=== PATIENT | female | born 1970 | race African-American/Black ===

== ENCOUNTER 2018-03-25 23:07 | Observation (INO) | payer SELFPAY ==
[2018-03-25] MEDS ORDERED: ASPIRIN 81 MG TABLET, CHEWABLE PO ONE (23:23)
[2018-03-25 23:53] LABS: ABSOLUTE BASOPHILS # (AUTO) 0.1 10^3/uL (0.0-0.2); ABSOLUTE EOSINOPHILS # (AUTO) 0.2 10^3/uL (0.0-0.6); ABSOLUTE LYMPHOCYTES (AUTO) 3.3 10^3/uL (0.5-4.7); ABSOLUTE MONOCYTES (AUTO) 0.6 10^3/uL (0.1-1.4); BASOPHILS % (AUTO) 1.1 % (0-2); EOSINOPHILS % (AUTO) 2.3 % (0-6); HEMATOCRIT 40.7 % (36.0-47.0); HEMOGLOBIN 13.8 g/dL (12.0-15.5); LYMPHOCYTES % (AUTO) 45.8 % (13-45); MEAN CORPUSCULAR HEMOGLOBIN 31.1 pg (27.0-33.4); MEAN CORPUSCULAR HGB CONC 33.7 g/dL (32.0-36.0); MEAN CORPUSCULAR VOLUME 92 fl (80-97); MONOCYTES % (AUTO) 8.8 % (3-13); PLATELET COUNT 355 10^3/uL (150-450); RED BLOOD COUNT 4.42 10^6/uL (3.72-5.28); RED CELL DISTRIBUTION WIDTH 13.2 % (11.5-14.0); TOTAL CELLS COUNTED % (AUTO) 100 %; WHITE BLOOD COUNT 7.2 10^3/uL (4.0-10.5)
[2018-03-26 00:04] LABS: ALANINE AMINOTRANSFERASE 32 U/L (9-52); ALBUMIN 4.3 g/dL (3.5-5.0); ALKALINE PHOSPHATASE 102 U/L (38-126); ANION GAP 12 (5-19); ASPARTATE AMINO TRANSFERASE 25 U/L (14-36); BILIRUBIN,DIRECT 0.3 mg/dL (0.0-0.4); BILIRUBIN,TOTAL 0.3 mg/dL (0.2-1.3); BLOOD UREA NITROGEN 17 mg/dL (7-20); CALCIUM 10.2 mg/dL (8.4-10.2); CARBON DIOXIDE 28 mmol/L (22-30); CHLORIDE 104 mmol/L (98-107); CREATINE KINASE 196 U/L (30-135); GLUCOSE 121 mg/dL (75-110); POTASSIUM 4.6 mmol/L (3.6-5.0); SODIUM 143.6 mmol/L (137-145); TOTAL PROTEIN 7.6 g/dL (6.3-8.2)
[2018-03-26 00:13] LABS: CREATINE KINASE MB 1.36 ng/mL (<4.55)
[2018-03-26 00:19] LABS: TROPONIN I < 0.012 ng/mL
[2018-03-26] MEDS ORDERED: DIAZEPAM INJ 10 MG/2 ML DISP.SYRIN IV ONE (00:30)
[2018-03-26] MEDS ORDERED: METHYLPREDNISOLONE INJ 125 MG/2 ML SDV IV ONE (00:30)
--- NOTE | 2018-03-26 00:36 | ER Document Report ---
ED General - General Chief Complaint: Breathing Difficulty Stated Complaint: CHEST PAIN Time Seen by Provider: 03/26/18 00:15 Mode of Arrival: Ambulatory Information source: Patient Notes: 47-year-old female is mastitis presents with complaints of generalized body aches. Patient notes symptoms have been ongoing now for approximately a week. Patient notes that she chronically has generalized body aches however she does have recent travel here in the car from [place] and felt that her body was getting worse. She denies any history of DVTs or PEs, denies any history of coronary artery disease, patient notes that she chronically has chest pain shortness of breath with her polymyositis Patient used to be on methotrexate and steroids but no longer is on any medications TRAVEL OUTSIDE OF THE [place] IN LAST 30 DAYS: No - HPI Onset: Last week Onset/Duration: Persistent Quality of pain: Achy Severity: Mild Pain Level: 1 Associated symptoms: Body/muscle aches, Chest pain, Shortness of breath Exacerbated by: Denies Relieved by: Denies Similar symptoms previously: No Recently seen / treated by doctor: No - Related Data Allergies/Adverse Reactions: No Known Allergies Allergy (Unverified 03/26/18 02:46) Past Medical History - Social History Smoking Status: Never Smoker Cigarette use (# per day): No Chew tobacco use (# tins/day): No Smoking Education Provided: No Family History: Reviewed & Not Pertinent Review of Systems - Review of Systems Notes: REVIEW OF SYSTEMS: CONSTITUTIONAL : Denies fever, chills, or sweats. Denies recent illness. EENT: Denies eye, ear, throat, or mouth pain or symptoms. Denies nasal or sinus congestion or discharge. Denies throat, tongue, or mouth swelling or difficulty swallowing. CARDIOVASCULAR: Admits chest pain shortness of breath RESPIRATORY: Denies cough, cold, or chest congestion. Admits shortness of breath GASTROINTESTINAL: Denies abdominal pain or distention. Denies nausea, vomiting , or diarrhea. Denies blood in vomitus, stools, or per rectum. Denies black, tarry stools. Denies constipation. GENITOURINARY: Denies difficulty urinating, painful urination, burning, frequency, blood in urine, or discharge. FEMALE GENITOURINARY: Denies vaginal bleeding, heavy or abnormal periods, irregular periods. Denies vaginal discharge or odor. MUSCULOSKELETAL: Admits to generalized body aches SKIN: Denies rash, lesions or sores. HEMATOLOGIC : Denies easy bruising or bleeding. LYMPHATIC: Denies swollen, enlarged glands. NEUROLOGICAL: Denies confusion or altered mental status. Denies passing out or loss of consciousness. Denies dizziness or lightheadedness. Denies headache. Denies weakness or paralysis or loss of use of either side. Denies problems with gait or speech. Denies sensory loss, numbness, or tingling. Denies seizures. PSYCHIATRIC: Denies anxiety or stress. Denies depression, suicidal ideation, or homicidal ideation. ALL OTHER SYSTEMS REVIEWED AND NEGATIVE. PHYSICAL EXAMINATION: GENERAL: Well-appearing, well-nourished and in no acute distress. HEAD: Atraumatic, normocephalic. EYES: Pupils equal round and reactive to light, extraocular movements intact, conjunctiva are normal. ENT: Nares patent, oropharynx clear without exudates. Moist mucous membranes. NECK: Normal range of motion, supple without lymphadenopathy LUNGS: Breath sounds clear to auscultation bilaterally and equal. No wheezes rales or rhonchi. HEART: Regular rate and rhythm without murmurs ABDOMEN: Soft, nontender, nondistended abdomen. No guarding, no rebound. No masses appreciated. Female : deferred Musculoskeletal: Normal range of motion, no pitting or edema. No cyanosis. Tenderness upon palpation of all muscles NEUROLOGICAL: Cranial nerves grossly intact. Normal speech, normal gait. Normal sensory, motor exams PSYCH: Normal mood, normal affect. SKIN: Warm, Dry, normal turgor, no rashes or lesions noted. Dictation was performed using [employer] voice recognition software Physical Exam - Vital signs Vitals: Temp Pulse Resp BP Pulse Ox 98.7 F 84 20 148/94 H 99 03/25/18 23:34 03/25/18 23:34 03/25/18 23:34 03/25/18 23:34 03/25/18 23:34 Course - Re-evaluation Re-evalutation: 03/26/18 00:36 Patient's presentation is probably secondary to her polymyositis, this is with the patient states as well, however given recent travel CT of the chest is pending, her vital signs are completely normal, she overall looks well, I will treat her initially with steroids and muscle relaxant at her request and do a cardiac workup as well 03/26/18 04:29 cta inconclusive, will admit ot chest pain - Vital Signs Vital signs: Temp Pulse Resp BP Pulse Ox 98.7 F 84 15 182/123 H 96 03/25/18 23:34 03/25/18 23:34 03/26/18 04:00 03/26/18 00:31 03/26/18 04:00 - Laboratory Result Diagrams: 03/25/18 23:35 03/25/18 23:35 Laboratory results interpreted by me: 03/25/18 03/25/18 23:35 23:35 Lymphocytes % 45.8 H Glucose 121 H Creatine Kinase 196 H - Diagnostic Test Radiology reviewed: Image reviewed, Reports reviewed - EKG Interpretation by Me EKG shows normal: Sinus rhythm, [place], QRS Complexes Discharge - Discharge Clinical Impression: Chest pain Qualifiers: Chest pain type: unspecified Qualified Code(s): R07.9 - Chest pain, unspecified Condition: Stable Disposition: ADMITTED OBSERVATION Admitting Provider: Hospitalist Unit Admitted: Telemetry
--- NOTE | 2018-03-26 01:33 | RADIOLOGY REPORT (SQ) ---
EXAM DESCRIPTION: CR chest one view CLINICAL HISTORY: 47 years Female, CHES PAIN COMPARISON: None. NUMBER OF VIEWS/TECHNIQUE: 1/AP FINDINGS: Adequate lung volume, clear parenchyma, normal cardiac silhouette, and intact bony thorax. IMPRESSION: No acute cardiopulmonary findings.
--- NOTE | 2018-03-26 02:47 | RADIOLOGY REPORT (SQ) ---
EXAM DESCRIPTION: CTA chest with contrast CLINICAL HISTORY: 47 years Female, recent travel, sob COMPARISON: None. TECHNIQUE: IV contrast. 3D reconstruction. This exam was performed according to our departmental dose-optimization program, which includes automated exposure control, adjustment of the mA and/or kV according to patient size and/or use of iterative reconstruction technique. [facility]: Dose Right [facility]: CareDose [facility]: Dose Right [facility]: Teradose 4D [facility]: Kngroo LIMITATIONS: None. Findings: There is inadequate enhancement of the pulmonary arterial system measuring 141 HU significantly decreasing sensitivity of this exam. Consider repeat, alternative, or surveillance investigation as clinically warranted. CTA appearance of the thoracic aorta is normal. Inferior neck, axillae, mediastinum, lungs, airway, lymphatics, heart, upper abdomen, and musculoskeleton appear unremarkable. Moderate dextroconvexity. Impression: Incomplete exam for pulmonary embolus.There is inadequate enhancement of the pulmonary arterial system. Consider repeat, alternative, or surveillance investigation as clinically warranted.
[2018-03-26] MEDS ORDERED: NITROGLYCERIN 0.4 MG/TAB 25 TAB/BOTTLE SL PRN (04:27)
[2018-03-26] MEDS ORDERED: MAG HYDROX/AL HYDROX/SIMETH SUSP 30 ML UDCUP PO PRN (04:27)
[2018-03-26] MEDS ORDERED: LACTULOSE SYRUP 20 GM/30 ML UDCUP PO ONE (04:31)
[2018-03-26] MEDS ORDERED: ATORVASTATIN CALCIUM 80 MG TABLET PO ONE (05:00)
[2018-03-26] MEDS ORDERED: ENALAPRIL MALEATE 5 MG TABLET PO ONE (05:00)
[2018-03-26 05:11] LABS: ABSOLUTE LYMPHOCYTES (AUTO) 1.3 10^3/uL (0.5-4.7); ABSOLUTE MONOCYTES (AUTO) 0.1 10^3/uL (0.1-1.4); ABSOLUTE NEUT (AUTO) 4.1 10^3/uL (1.7-8.2); BASOPHILS % (AUTO) 0.8 % (0-2); EOSINOPHILS % (AUTO) 0.4 % (0-6); HEMATOCRIT 41.6 % (36.0-47.0); HEMOGLOBIN 13.9 g/dL (12.0-15.5); LYMPHOCYTES % (AUTO) 22.9 % (13-45); MEAN CORPUSCULAR HEMOGLOBIN 30.4 pg (27.0-33.4); MEAN CORPUSCULAR HGB CONC 33.3 g/dL (32.0-36.0); MEAN CORPUSCULAR VOLUME 91 fl (80-97); MONOCYTES % (AUTO) 2.7 % (3-13); PLATELET COUNT 331 10^3/uL (150-450); RED BLOOD COUNT 4.57 10^6/uL (3.72-5.28); RED CELL DISTRIBUTION WIDTH 13.3 % (11.5-14.0); SEGMENTED NEUTROPHILS % (AUTO) 73.2 % (42-78); TOTAL CELLS COUNTED % (AUTO) 100 %; WHITE BLOOD COUNT 5.6 10^3/uL (4.0-10.5)
[2018-03-26 05:21] LABS: CHOLESTEROL 227.34 mg/dL (0-200); TRIGLYCERIDES 139 mg/dL (<150)
[2018-03-26 05:32] LABS: DIRECT LDL 142 mg/dL (<100)
[2018-03-26 05:49] LABS: ERYTHROCYTE SEDIMENTATION RATE 22 mm/hr (0-20)
--- NOTE | 2018-03-26 07:33 | PDOC H&P ---
History of Present Illness Admission Date/PCP: 03/26/18 04:31 Patient complains of: Chest heaviness History of Present Illness: DEREJE BARGER is a 47 year old female with history of polymyositis, Morbid obesity and medication noncompliance. Patient presents after relocation from [facility] and complaint of chest heaviness with radiation to arms bilaterally worsened with activity alleviated by rest. Patient admits medication noncompliance for 1 year secondary to financial barriers. In the emergency room she is found to have hypertensive urgency of 180/120. She receives aspirin and Valium greatly improving blood pressure and pain. Initial workup was unremarkable she denies previous cardiac workup. She is referred to the hospitalist for admission. Past Medical History Cardiac Medical History: Reports: Hypertension Musculoskeltal Medical History: Reports: Other - Polymyositis Past Surgical History Past Surgical History: Reports: None Social History Information Source: Patient Smoking Status: Never Smoker Frequency of Alcohol Use: None Drugs: None - Advance Directive Resuscitation Status: Full Code Family History Family History: CAD, DM Parental Family History Reviewed: Yes Children Family History Reviewed: Yes Sibling(s) Family History Reviewed.: Yes Medication/Allergy Home Medications: No Home Medications 03/26/18 Allergies/Adverse Reactions: No Known Allergies Allergy (Unverified 03/26/18 02:46) Review of Systems Constitutional: ABSENT: chills, fever(s), headache(s), weight gain, weight loss Eyes: ABSENT: visual disturbances Ears: ABSENT: hearing changes Cardiovascular: ABSENT: chest pain, dyspnea on exertion, edema, orthropnea, palpitations Respiratory: ABSENT: cough, hemoptysis Gastrointestinal: ABSENT: abdominal pain, constipation, diarrhea, hematemesis, hematochezia, nausea, vomiting Genitourinary: ABSENT: dysuria, hematuria Musculoskeletal: ABSENT: joint swelling Integumentary: ABSENT: rash, wounds Neurological: ABSENT: abnormal gait, abnormal speech, confusion, dizziness, focal weakness, syncope Psychiatric: ABSENT: anxiety, depression, homidical ideation, suicidal ideation Endocrine: ABSENT: cold intolerance, heat intolerance, polydipsia, polyuria Hematologic/Lymphatic: ABSENT: easy bleeding, easy bruising Physical Exam Vital Signs: Temp Pulse Resp BP Pulse Ox 98.7 F 84 16 182/123 H 100 03/25/18 23:34 03/25/18 23:34 03/26/18 07:00 03/26/18 00:31 03/26/18 07:00 General appearance: PRESENT: no acute distress, well-developed, well-nourished Head exam: PRESENT: atraumatic, normocephalic Eye exam: PRESENT: conjunctiva pink, EOMI, PERRLA. ABSENT: scleral icterus Ear exam: PRESENT: normal external ear exam Mouth exam: PRESENT: moist, tongue midline Neck exam: ABSENT: carotid bruit, JVD, lymphadenopathy, thyromegaly Respiratory exam: PRESENT: clear to auscultation shara. ABSENT: rales, rhonchi, wheezes Cardiovascular exam: PRESENT: RRR. ABSENT: diastolic murmur, rubs, systolic murmur Pulses: PRESENT: normal dorsalis pedis pul Vascular exam: PRESENT: normal capillary refill GI/Abdominal exam: PRESENT: normal bowel sounds, soft. ABSENT: distended, guarding, mass, organolmegaly, rebound, tenderness Rectal exam: PRESENT: deferred Extremities exam: PRESENT: full ROM. ABSENT: calf tenderness, clubbing, pedal edema Neurological exam: PRESENT: alert, awake, oriented to person, oriented to place , oriented to time, oriented to situation, CN II-XII grossly intact. ABSENT: motor sensory deficit Psychiatric exam: PRESENT: appropriate affect, normal mood. ABSENT: homicidal ideation, suicidal ideation Skin exam: PRESENT: dry, intact, warm. ABSENT: cyanosis, rash Results Laboratory Results: 03/26/18 05:00 03/26/18 03/26/18 05:00 05:00 WBC 5.6 RBC 4.57 Hgb 13.9 Hct 41.6 MCV 91 MCH 30.4 MCHC 33.3 RDW 13.3 Plt Count 331 Seg Neutrophils % 73.2 Lymphocytes % 22.9 Monocytes % 2.7 L Eosinophils % 0.4 Basophils % 0.8 Absolute Neutrophils 4.1 Absolute Lymphocytes 1.3 Absolute Monocytes 0.1 Absolute Eosinophils 0.0 Absolute Basophils 0.0 Triglycerides 139 Cholesterol 227.34 H LDL Cholesterol Direct 142 H VLDL Cholesterol 28.0 HDL Cholesterol 47 Impressions: Chest X-Ray 03/25/18 23:23 IMPRESSION: No acute cardiopulmonary findings. Assessment & Plan - Diagnosis (1) Chest pain Qualifiers: Chest pain type: unspecified Qualified Code(s): R07.9 - Chest pain, unspecified Is this a current diagnosis for this admission?: Yes Plan: Chest pain there are multiple risk factors for coronary artery disease and subsequently will observe and evaluation of acute coronary syndrome versus coronary artery disease with anginal equivalents. Cardiac monitoring blood pressure Q6 hours ,TSH, lipid profile, serial cardiac enzymes and cardiac stress test (2) Polymyositis Is this a current diagnosis for this admission?: Yes Plan: Obtain ESR consider steroid (3) Hypertensive urgency Is this a current diagnosis for this admission?: Yes Plan: IV TESS inhibitor and hydralazine as needed, possible anxiety component, consider trazodone - Time Time Spent: 50 to 70 Minutes - Inpatient Certification Medical Necessity: Need Close Monitoring Due to Risk of Patient Decompensation
--- NOTE | 2018-03-26 07:48 | EKG REPORT ---
SEVERITY:- NORMAL ECG - SINUS RHYTHM : Confirmed by: Rohit Gonzales MD 26-Mar-2018 07:48:28
[2018-03-26] MEDS ORDERED: METOPROLOL TARTRATE PF/INJ 5 MG/5 ML SDV IV ONE (07:59)
[2018-03-26] MEDS: ENALAPRIL MALEATE 5 MG TABLET PO SCH ×2 (09:31→21:44)
[2018-03-26] MEDS: METOPROLOL TARTRATE 25 MG TABLET PO SCH ×2 (09:31→21:44)
[2018-03-26] MEDS: DOCUSATE SODIUM 100 MG CAPSULE PO SCH ×2 (09:31→17:34)
[2018-03-26 10:50] LABS: CREATINE KINASE MB 1.17 ng/mL (<4.55)
[2018-03-26 10:55] LABS: TROPONIN I < 0.012 ng/mL
[2018-03-26] MEDS ORDERED: REGADENOSON INJ 0.4 MG/5 ML DISP.SYRIN IV ONE (11:57)
[2018-03-26] MEDS ORDERED: AMINOPHYLLINE INJ/PF 250 MG/10 ML SDV IV ONE (11:57)
--- NOTE | 2018-03-26 13:28 | DRAGON STRESS TEST REPORT ---
INTRAVENOUS LEXISCAN CARDIOLITE STRESS TEST USING SINGLE PHOTON EMMISION COMPUTERIZED TOMOGRAPHIC. DATE OF PROCEDURE: March 26, 2018, INDICATION : Chest pain CARDIAC RISK FACTORS: Dyslipidemia RESTING EKG: Sinus rhythm without any baseline ST-T wave changes STRESS EKG: No significant ST segment changes noted with LexiScan bolus REASON FOR TERMINATION: Protocol. PROCEDURE REPORT: Baseline heart rate 85 beats per minute with blood pressure of 139/92. Patient had no significant complaints. Patient was bolused with Lexiscan 0.4 mg intravenously followed by saline bolus. Heart rate at 2 minutes post bolus 103 with a blood pressure of 151/102. 3 minutes post bolus heart rate 97 with blood pressure of 140/98. No significant EKG changes were noted. Patient had no significant complaints during the procedure or postprocedure. Patient injected with Aminophyllin 75 mg at 3 minutes or later after Lexiscan bolus. CONCLUSIONS: Normal EKG and hemodynamic response to IV LexiScan. NUCLEAR DATA: At rest the patient was given 13.98 millicuries of technetium 99 sestamibi injected intravenously. As per protocol rest gated SPECT images were obtained. On day of stress test, the patient was given intravenous LexiScan at a dose of 0.4 mg in 5 mL intravenously, followed by flush with normal saline. Subsequently the stress dose of 47.2 millicuries of technetium 99 sestamibi was injected intravenously. As per protocol stress gated images were obtained. NUCLEAR INTERPRETATION: Both raw and processed data were used for interpretation. Visual, qualitative, computer-generated quantitative data was used. There was good myocardial uptake of technetium compound. Motion artifact and soft tissue attenuations were noted. Increased visceral uptake was noted. Increased diaphragmatic attenuation artifact was noted. It caused some difficulty with interpreting perfusion of the inferior wall. However no definitive areas of transient perfusion defect noted, No definitive areas of fixed perfusion defect or scars noted. EKG gated imaging showed LV EF at 67 %, rest and stress gated EF similar visually. T. I D. ratio was 0.78. Lung heart ratio noted to be within normal limits 0.23. No significant extracardiac and abnormal radiotracer activities were noted. RV free wall uptake was noted to be WNL. IMPRESSION: Also refer to comments under nuclear interpretation. Also test results needs to be interpreted in the context of pretest probability. 1. No definitive areas of transient perfusion defect noted. 2. There is no definitive scintigraphic evidence of myocardial infarction/scar. 3. EKG gated imaging shows left ventricular ejection fraction of approx. 67 %. 4. Clinical correlation requested as occasionally single vessel disease or balanced ischemia could be missed. In approximately 10% of the cases Lexiscan may not cause adequate vasodilatory stress. RECOMMENDATIONS: Aggressive risk factor modification and medical management. Further evaluation may be needed if continued symptoms or other high risk indicators are noted on clinical evaluation. Close cardiology follow-up is also recommended. Clinical correlation with echocardiogram derived ejection fraction. Inability to exercise by itself can lead to increased cardiovascular event risks. Consider cardiology consultation and or follow-up if clinically indicated. 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 RAO
[2018-03-26] MEDS: CYCLOBENZAPRINE HCL 10 MG TABLET PO PRN (16:14)
[2018-03-26 16:20] LABS: CREATINE KINASE MB 1.06 ng/mL (<4.55)
[2018-03-26 16:25] LABS: TROPONIN I < 0.012 ng/mL
[2018-03-26] MEDS: ACETAMINOPHEN 325 MG TABLET PO PRN ×2 (17:35→21:44)
[2018-03-26] MEDS ORDERED: ATORVASTATIN CALCIUM 80 MG TABLET PO SCH (22:00)
[2018-03-26 22:20] LABS: CREATINE KINASE MB 1.21 ng/mL (<4.55); TROPONIN I 0.028 ng/mL
[2018-03-27] MEDS: CYCLOBENZAPRINE HCL 10 MG TABLET PO PRN (00:03)
[2018-03-27 05:48] LABS: CHOLESTEROL 203.52 mg/dL (0-200); CREATINE KINASE 97 U/L (30-135); TRIGLYCERIDES 95 mg/dL (<150)
[2018-03-27 05:57] LABS: DIRECT LDL 133 mg/dL (<100)
[2018-03-27 06:55] LABS: ABSOLUTE BASOPHILS # (AUTO) 0.1 10^3/uL (0.0-0.2); ABSOLUTE EOSINOPHILS # (AUTO) 0.1 10^3/uL (0.0-0.6); ABSOLUTE LYMPHOCYTES (AUTO) 3.7 10^3/uL (0.5-4.7); ABSOLUTE MONOCYTES (AUTO) 1.2 10^3/uL (0.1-1.4); ABSOLUTE NEUT (AUTO) 9.1 10^3/uL (1.7-8.2); BASOPHILS % (AUTO) 0.4 % (0-2); EOSINOPHILS % (AUTO) 0.4 % (0-6); HEMATOCRIT 38.9 % (36.0-47.0); LYMPHOCYTES % (AUTO) 26.2 % (13-45); MEAN CORPUSCULAR HEMOGLOBIN 30.5 pg (27.0-33.4); MEAN CORPUSCULAR HGB CONC 33.4 g/dL (32.0-36.0); MEAN CORPUSCULAR VOLUME 91 fl (80-97); MONOCYTES % (AUTO) 8.8 % (3-13); PLATELET COUNT 323 10^3/uL (150-450); RED BLOOD COUNT 4.26 10^6/uL (3.72-5.28); RED CELL DISTRIBUTION WIDTH 13.3 % (11.5-14.0); SEGMENTED NEUTROPHILS % (AUTO) 64.2 % (42-78); TOTAL CELLS COUNTED % (AUTO) 100 %
[2018-03-27 07:06] LABS: WHITE BLOOD COUNT 14.2 10^3/uL (4.0-10.5)
[2018-03-27 08:02] VITALS: BP 130/80
[2018-03-27] MEDS: METOPROLOL TARTRATE 25 MG TABLET PO SCH (10:05)
[2018-03-27] MEDS: DOCUSATE SODIUM 100 MG CAPSULE PO SCH (10:05)
[2018-03-27] MEDS: ENALAPRIL MALEATE 5 MG TABLET PO SCH (10:05)
--- NOTE | 2018-03-27 12:23 | PDOC DISCHARGE SUMMARY ---
General - Admit/Disc Date/PCP Admission Date/Primary Care Provider: 03/26/18 04:31 Discharge Date: 03/27/18 - Discharge Diagnosis (1) Chest pain Is this a current diagnosis for this admission?: Yes Summary: Cardiac enzymes were negative 3, Cardiolite stress test showed no areas of reversible ischemia, telemetry was benign throughout her stay. (2) Hypertensive urgency Is this a current diagnosis for this admission?: Yes Summary: Medications were adjusted this admission. She had not been taking her medications and had no idea what they were. - Additional Information Resuscitation Status: Full Code Prescriptions: Atorvastatin Calcium [Lipitor 80 mg Tablet] 80 mg PO QHS #30 tablet Enalapril Maleate [Vasotec 5 mg Tablet] 5 mg PO Q12 #60 tablet Metoprolol Tartrate [Lopressor 25 mg Tablet] 25 mg PO Q12 #60 tablet Home Medications: Atorvastatin Calcium [Lipitor 80 mg Tablet] 80 mg PO QHS #30 tablet 03/27/18 Docusate Sodium [Colace 100 mg Capsule] 100 mg PO BID capsule 03/27/18 Enalapril Maleate [Vasotec 5 mg Tablet] 5 mg PO Q12 #60 tablet 03/27/18 Metoprolol Tartrate [Lopressor 25 mg Tablet] 25 mg PO Q12 #60 tablet 03/27/18 History of Present Illness Patient complains of: Chest pain History of Present Illness: DEREJE BARGER is a 47 year old female with history of polymyositis, Morbid obesity and medication noncompliance. Patient presents after relocation from [facility] and complaint of chest heaviness with radiation to arms bilaterally worsened with activity alleviated by rest. Patient admits medication noncompliance for 1 year secondary to financial barriers. In the emergency room she is found to have hypertensive urgency of 180/120. She receives aspirin and Valium greatly improving blood pressure and pain. Initial workup was unremarkable she denies previous cardiac workup. She is referred to the hospitalist for admission. Hospital Course Hospital Course: She was monitored on telemetry, serial cardiac enzymes were negative 3, she underwent a Cardiolite stress test which showed no areas of reversible ischemia. Blood pressure medications were titrated for improved control. At this point she is comfortable and will be discharged home with outpatient follow -up. Physical Exam Vital Signs: Temp Pulse Resp BP Pulse Ox 98.3 F 77 20 130/80 H 100 03/27/18 07:15 03/27/18 07:15 03/27/18 07:15 03/27/18 07:15 03/27/18 07:15 Intake & Output 03/26/18 03/27/18 03/28/18 05:59 05:59 05:59 Intake Total 1847 10 Balance 1847 10 Weight 268 lb 1.314 oz General appearance: PRESENT: no acute distress, morbidly obese Respiratory exam: PRESENT: clear to auscultation shara Cardiovascular exam: PRESENT: RRR GI/Abdominal exam: PRESENT: soft Neurological exam: PRESENT: alert Psychiatric exam: PRESENT: appropriate affect Skin exam: PRESENT: warm Results Laboratory Results: 03/27/18 04:33 03/27/18 03/27/18 04:33 04:33 WBC 14.2 H D RBC 4.26 Hgb 13.0 Hct 38.9 MCV 91 MCH 30.5 MCHC 33.4 RDW 13.3 Plt Count 323 Seg Neutrophils % 64.2 Lymphocytes % 26.2 Monocytes % 8.8 Eosinophils % 0.4 Basophils % 0.4 Absolute Neutrophils 9.1 H Absolute Lymphocytes 3.7 Absolute Monocytes 1.2 Absolute Eosinophils 0.1 Absolute Basophils 0.1 Triglycerides 95 Cholesterol 203.52 H LDL Cholesterol Direct 133 H VLDL Cholesterol 19.0 HDL Cholesterol 43 03/26/18 03/26/18 03/26/18 10:04 15:30 21:38 Creatine Kinase CK-MB (CK-2) 1.17 1.06 1.21 Troponin I < 0.012 < 0.012 0.028 03/27/18 04:33 Creatine Kinase 97 CK-MB (CK-2) Troponin I Impressions: Chest X-Ray 03/25/18 23:23 IMPRESSION: No acute cardiopulmonary findings. Qualifiers - * PATIENT BEING DISCHARGED WITH ANY OF THE FOLLOWING DIAGNOSIS: No
== END 2018-03-27 11:30 | disposition home or self-care (01) ==
LOC: ER 23:07 → EH 03-26 04:31 → 3N 03-26 09:14
PROVIDERS: ADMIT Internal Medicine; ATTEND Internal Medicine
DX: R07.9 Chest pain, unspecified (principal); I16.0 Hypertensive urgency; M33.21 Polymyositis with respiratory involvement; R06.02 Shortness of breath; Z79.899 Other long term (current) drug therapy; Z91.14 Patient's other noncompliance with medication regimen; Z59.9 Problem related to housing and economic circumstances, unspecified; Z82.49 Family history of ischemic heart disease and other diseases of the circulatory system
CPT/HCPCS: 93005; 99285; 96374; 96375; 36415 ×3; 82553 ×2; 82550 ×2; 84443; 85025 ×3; 85652; 80053; 84484 ×2; 80061 ×2; 93017; 71045; 78452; 71275; 93010; A9500; J2785; J3360; J2930; J3490 ×5; J0280; Q9969